=== PATIENT | male | born 1960 | race African-American/Black ===

== ENCOUNTER 2018-06-09 17:16 | Emergency (ER) | payer MEDICAID ==
[~2018-06-09] VITALS: Ht 190.5 cm; Wt 93.0 kg
[~2018-06-09 17:16] MED LIST: ALFU10TA9; ATOR40TA70; BUPR-43; DICY20TA54; EAR DROP; FAMO20TA8; FINA5TAB11; FINA5TAB3; GABA300C; METOPROLOL
[2018-06-09] MEDS ORDERED: BACITRACIN ZINC OINT UDPKT TOP ONE (18:30)
[2018-06-09 19:39] VITALS: BP 100/61
== END 2018-06-09 19:55 | disposition home or self-care (01) ==
LOC: ER 19:02
DX: S50.812A Abrasion of left forearm, initial encounter (principal); F12.10 Cannabis abuse, uncomplicated; F17.200 Nicotine dependence, unspecified, uncomplicated; W01.0XXA Fall on same level from slipping, tripping and stumbling without subsequent striking against object, initial encounter; Y93.89 Activity, other specified; Y92.018 Other place in single-family (private) house as the place of occurrence of the external cause
CPT/HCPCS: 73090; 99284

== ENCOUNTER 2020-05-21 19:19 | Emergency (ER) | payer MEDICAID ==
[~2020-05-21] VITALS: Ht 188 cm; Wt 78.0 kg
[2020-05-21] MEDS ORDERED: SODIUM CHLORIDE 0.9% 1,000 ML IV ONE (23:36)
[2020-05-21] MEDS ORDERED: MORPHINE SULFATE 4 MG/ML CPJ (NOT FOR IM USE) IV STA (23:36)
[2020-05-21] MEDS ORDERED: ONDANSETRON HCL 4MG/2ML INJ IV STA (23:36)
[2020-05-21] MEDS ORDERED: LIDOCAINE HCL/EPINEPHRINE 1%-EPI 1:100,000 20 ML VIAL INFIL ONE (23:45)
[2020-05-21] MEDS ORDERED: TETANUS, DIPHTHERIA, PERTUSSIS VAC/PF 0.5ML (>7YR OLD) IM ONE (23:45)
[2020-05-21] MEDS ORDERED: BACITRACIN ZINC OINT UDPKT TOP ONE (23:45)
[2020-05-21] MEDS ORDERED: CEFAZOLIN 1000MG PREMIX 50 ML IV ONE (23:45)
[2020-05-22] MEDS ORDERED: MORPHINE SULFATE 4 MG/ML CPJ (NOT FOR IM USE) IV STA (07:18)
[2020-05-22] MEDS ORDERED: ONDANSETRON HCL 4MG/2ML INJ IV STA (07:18)
[2020-05-22 09:08] LABS: BASOPHILS % 0.4 % (0.0-2.0); EOSINOPHILS % 0.5 % (0.0-5.0); HEMATOCRIT. 42.7 % (42.0-52.0); HEMOGLOBIN. 14.5 g/dL (14.0-18.0); MEAN CORPUSCULAR HEMOGLOBIN 31.1 pg (28.0-32.0); MEAN CORPUSCULAR VOLUME 91.7 fL (80.0-94.0); MEAN PLATELET VOLUME 6.3 fl (7.4-10.4); MONOCYTES % 6.5 % (2.0-8.0); NEUTROPHILS % 78.6 % (40.0-76.0); PLATELET 324 x1000/uL (130-400); RED BLOOD CELL COUNT 4.66 mill/uL (4.7-6.1); RED CELL DISTRIBUTION WIDTH 13.4 % (11.6-14.6)
[2020-05-22 09:15] LABS: CHLORIDE 102 mEq/L (98-107)
[2020-05-22] MEDS ORDERED: LORAZEPAM 1MG TABLET PO ONE (12:30)
[2020-05-22 15:05] VITALS: BP 117/92
== END 2020-05-22 16:15 | disposition short-term general hospital (02) ==
LOC: ER 19:19
DX: S02.69XA Fracture of mandible of other specified site, initial encounter for closed fracture (principal); W18.39XA Other fall on same level, initial encounter; Y93.89 Activity, other specified; Y92.89 Other specified places as the place of occurrence of the external cause; Y99.8 Other external cause status; F17.290 Nicotine dependence, other tobacco product, uncomplicated; F12.10 Cannabis abuse, uncomplicated; Z79.899 Other long term (current) drug therapy
CPT/HCPCS: 12011; 36415; 70450; 70486; 80053; 85025; 90471; 90715; 93005; 96365; 96375; 96376; 99285; J0690; J2270; J2405; J3490; J7030